=== PATIENT | female | born 1990 | race Caucasian/White ===

== ENCOUNTER 2017-10-02 11:52 | Emergency (ER) | payer OTHER, MEDICAID, SELFPAY ==
[2017-10-02 11:59] VITALS: BP 154/106; PULSE 116; RESP 26; TEMP 37.1; O2SAT 99; BMI 31.0
--- NOTE | 2017-10-02 12:27 | ED.ANXIETY ---
HPI - Anxiety <ZAYRA Camilo - Last Filed: 10/02/17 23:01> General Chief Complaint: Anxiety Stated Complaint: ANXIETY ATTACK Time Seen by Provider: 10/02/17 12:27 History of Present Illness HPI narrative: 27-year-old female with history of type 2 diabetes and also anxiety with panic attacks here for complaint of having a panic attack today. She states that she has had multiple stressors over the last several days and that she has had to travel out of town due to family emergency and has not been able to take her medications. She states that today she started having a panic attack with hyperventilation. She normally takes citalopram however her medication is currently on [place] and she has been and [place] and has not been able to take. She states that she did have some suicidal thoughts a couple of days ago. However she has no plan and she states that she does not want to act on it. She denies any homicidal ideation. She also states she may have urinary tract infection. MD complaint: anxiety Related Data Home Medications Medication Instructions Recorded Confirmed insulin aspart U-100 [Novolog 7 u BIDCC #0 02/22/16 PenFill U-100 Insulin] Previous Rx's Medication Instructions Recorded medroxyprogesterone 10 mg PO SEE INSTRUCTIONS #50 tab 02/22/16 Allergies Allergy/AdvReac Type Severity Reaction Status Date / Time oxycodone [OXYCODONE] Allergy Severe THROAT Unverified 06/17/17 12:15 SWELLS; CAN'T BREATH Review of Systems <ZAYRA Camilo - Last Filed: 10/02/17 23:01> Constitutional Denies chills, Denies fever(s), Denies lethargy and Denies weakness Eyes Denies change in vision, Denies eye discharge, Denies irritation and Denies loss of vision Cardiovascular Denies chest pain, Denies irregular heart rhythm, Denies lightheadedness, Denies palpitations, Denies dyspnea, Denies dyspnea on exertion and Denies orthopnea Respiratory Denies cough, Denies dyspnea, Denies dyspnea on exertion and Denies wheezing Gastrointestinal Gastrointestinal: Denies abdominal pain, Denies change in bowel habits, Denies diarrhea, Denies nausea and Denies vomiting Genitourinary Reports dysuria Musculoskeletal Denies back pain, Denies muscle weakness, Denies numbness and Denies tingling Integumentary/Breasts Denies pruritus, Denies erythema, Denies rash and Denies wounds Neurologic Denies loss of vision, Denies numbness, Denies tingling and Denies weakness Psychiatric Reports anxiety Endocrine Denies palpitations Hematologic/Lymphatic Denies easy bruising Allergic/Immunologic Denies wheezing Exam <ZAYRA Camilo - Last Filed: 10/02/17 23:01> Initial Vital Signs Initial Vital Signs: Vital Signs Temperature 98.7 F 10/02/17 11:59 Pulse Rate 116 H 10/02/17 11:59 Respiratory Rate 26 H 10/02/17 11:59 Blood Pressure 154/106 H 10/02/17 11:59 Pulse Oximetry 99 10/02/17 11:59 Const General: cooperative and well developed Nutritional Appearance: well nourished Orientation: alert, awake, oriented x3 and not confused HENMT Mouth: oral mucosae normal and moist mucous membranes Eyes Conjunctivae: conjunctivae normal Sclera: sclerae normal Pupils: PERRL EOM: EOM intact bilaterally Resp Effort & Inspection: normal respiratory effort, able to speak in complete sentences, no respiratory distress and no use of accessory muscles Auscultation: clear to auscultation bilaterally, no rales, no rhonchi and no wheezes Cardio Rate: regular rate Rhythm: regular rhythm Heart Sounds: no click, no gallops, no murmurs and no rubs Pulses: normal peripheral pulses Skin General: no rashes or lesions noted, No jaundice and No petechiae Neuro General: alert, oriented x3, gait normal and no focal motor deficits Speech: speech normal Psych Appearance: well kempt Mental Status: mental status grossly normal Mood: anxious mood Attitude: cooperative Thought Content: normal and suicidality Judgment: judgment good <Shamar Cotton DO - Last Filed: 10/03/17 07:21> Initial Vital Signs Initial Vital Signs: Vital Signs Temperature 98.7 F 10/02/17 11:59 Pulse Rate 116 H 10/02/17 11:59 Respiratory Rate 26 H 10/02/17 11:59 Blood Pressure 154/106 H 10/02/17 11:59 Pulse Oximetry 99 10/02/17 11:59 Course <ZAYRA Camilo - Last Filed: 10/02/17 23:01> Orders Ordered: Discontinued Medications Sodium Chloride (Normal Saline 0.9%) 1,000 mls @ 1,000 mls/hr IV BOLUS ONE Stop: 10/02/17 13:27 Last Infusion: 10/02/17 13:55 Dose: 0 mls/hr Admin: 10/02/17 12:42 Dose: 1,000 mls/hr Lorazepam (Ativan) 1 mg IV NOW ONE Stop: 10/02/17 12:29 Last Admin: 10/02/17 12:42 Dose: 1 mg Vital Signs - 8 hr 10/02/17 15:27 Pulse Rate 73 Respiratory Rate 16 Blood Pressure 113/72 Pulse Oximetry 100 <Shamar Cotton DO - Last Filed: 10/03/17 07:21> Orders Ordered: Discontinued Medications Sodium Chloride (Normal Saline 0.9%) 1,000 mls @ 1,000 mls/hr IV BOLUS ONE Stop: 10/02/17 13:27 Last Infusion: 10/02/17 13:55 Dose: 0 mls/hr Admin: 10/02/17 12:42 Dose: 1,000 mls/hr Lorazepam (Ativan) 1 mg IV NOW ONE Stop: 10/02/17 12:29 Last Admin: 10/02/17 12:42 Dose: 1 mg Vital Signs - 8 hr 10/02/17 15:27 Pulse Rate 73 Respiratory Rate 16 Blood Pressure 113/72 Pulse Oximetry 100 MDM - Anxiety <ZAYRA Camilo - Last Filed: 10/02/17 23:01> Lab Data Result diagrams: 10/02/17 12:45 10/02/17 12:45 Lab Results 10/02/17 10/02/17 Range/Units 12:45 12:45 WBC 8.0 (4.5-11.0) X10^3/uL RBC 5.42 H (4.0-5.2) X10^6/uL Hgb 15.6 (12.0-16.0) g/dL Hct 45.7 (36-46) % MCV 84.2 (80-100) fL MCH 28.8 (26-34) PG MCHC 34.2 (30-36) % RDW 13.5 (11.6-14.8) % Plt Count 283 (150-400) X10^3/uL Neut % (Auto) 55.9 (50-75) % Lymph % (Auto) 37.7 (25-40) % [place] % (Auto) 5.0 (3-14) % Eos % (Auto) 0.8 L (2-4) % Baso % (Auto) 0.6 (0-2) % Neut # (Auto) 4400 (6847-3542) /uL Sodium 136 L (137-145) mmol/L Potassium 4.1 (3.4-5.1) mmol/L Chloride 103 (98-107) mmol/L Carbon Dioxide 19 L (22-32) mmol/L BUN 16 (7-17) mg/dL Creatinine 0.50 L (0.52-1.04) mg/dL Estimated GFR > 60.0 (>60) mL/min BUN/Creatinine Ratio 32.0 H (6-22) Glucose 367 H (70-100) mg/dL Calcium 9.9 (8.4-10.2) mg/dL Total Bilirubin 0.6 (0.2-1.3) mg/dL AST 21 (14-36) IU/L ALT 32 (9-52) IU/L Alkaline Phosphatase 65 (38-126) U/L Total Protein 7.4 (6.3-8.2) g/dL Albumin 4.7 (3.5-5.0) g/dL Globulin 2.7 (1.7-4.1) g/dL Albumin/Globulin Ratio 1.7 (1.0-2.8) MDM Narrative Medical decision making narrative: Patient was given IV fluid bolus and Ativan and resolved her symptoms. Patient's blood sugar was elevated at 367. After fluids her blood sugar reduced. She states that she is feeling much better. conveyor line bakery worker gave resources for patient for mental health services. She is released home follow up with primary care provider in the next couple days for re-evaluation. Follow up with Mental Health. Return emergency room for any worsening symptoms. Resume Medication regimen as prescribed. <Shamar Cotton, - Last Filed: 10/03/17 07:21> Lab Data Lab Results 10/02/17 10/02/17 Range/Units 12:45 12:45 WBC 8.0 (4.5-11.0) X10^3/uL RBC 5.42 H (4.0-5.2) X10^6/uL Hgb 15.6 (12.0-16.0) g/dL Hct 45.7 (36-46) % MCV 84.2 (80-100) fL MCH 28.8 (26-34) PG MCHC 34.2 (30-36) % RDW 13.5 (11.6-14.8) % Plt Count 283 (150-400) X10^3/uL Neut % (Auto) 55.9 (50-75) % Lymph % (Auto) 37.7 (25-40) % [place] % (Auto) 5.0 (3-14) % Eos % (Auto) 0.8 L (2-4) % Baso % (Auto) 0.6 (0-2) % Neut # (Auto) 4400 (2291-7031) /uL Sodium 136 L (137-145) mmol/L Potassium 4.1 (3.4-5.1) mmol/L Chloride 103 (98-107) mmol/L Carbon Dioxide 19 L (22-32) mmol/L BUN 16 (7-17) mg/dL Creatinine 0.50 L (0.52-1.04) mg/dL Estimated GFR > 60.0 (>60) mL/min BUN/Creatinine Ratio 32.0 H (6-22) Glucose 367 H (70-100) mg/dL Calcium 9.9 (8.4-10.2) mg/dL Total Bilirubin 0.6 (0.2-1.3) mg/dL AST 21 (14-36) IU/L ALT 32 (9-52) IU/L Alkaline Phosphatase 65 (38-126) U/L Total Protein 7.4 (6.3-8.2) g/dL Albumin 4.7 (3.5-5.0) g/dL Globulin 2.7 (1.7-4.1) g/dL Albumin/Globulin Ratio 1.7 (1.0-2.8) Discharge Plan Departure Patient Disposition: Home, Self-Care Clinical Impression: Acute anxiety Discharge Date/Time: 10/02/17 15:28 Interventions: ED Discharge Assessment Last Done: 10/02/17 15:27 Instructions: DI for Anxiety -- Adult Activity Restrictions/Additional Instructions: Your blood sugar was elevated today in the emergency room. However after fluids her blood sugar reduced. Signs and symptoms today presents as anxiety attack. Follow up with her primary care provider in the next couple days for re-evaluation. Mental health resources provided by social work associate today for you to utilize to help with her symptoms. Resume medication regimen as prescribed. Return emergency room for any worsening symptoms. Prescriptions: No Action insulin aspart U-100 [Novolog PenFill U-100 Insulin] 100 UNIT/1 ML cartridge 7 u BIDCC Qty: 0 RF: 0 medroxyprogesterone 10 MG tablet 10 mg PO SEE INSTRUCTIONS Qty: 50 RF: 0 Referrals: Fabiana Dave MD [Primary Care Provider] - <Shamar Cotton DO - Last Filed: 10/03/17 07:21> Cosign ED Attending Lorelei Attestation: I was available for consultation during this patient's emergency department encounter
[2017-10-02] MEDS: SODIUM CHLORIDE 0.9% 1,000 ML 1000 ML IV (12:42)
[2017-10-02] MEDS: LORazepam 2 MG/ML SYRINGE 1 MG IV (12:42)
[2017-10-02 13:00] LABS: Add Manual Diff / Slide Review NO; Basophils Percent Auto 0.6 % (0-2); Eosinophils Percent Auto 0.8 % (2-4); Hematocrit 45.7 % (36-46); Hemoglobin 15.6 g/dL (12.0-16.0); Lymphocytes Percent Auto 37.7 % (25-40); Mean Corpuscular HGB Conc 34.2 % (30-36); Mean Corpuscular Hemoglobin 28.8 PG (26-34); Mean Corpuscular Volume 84.2 fL (80-100); Neutrophils Absolute Auto 4400 /uL (3000-5900); Neutrophils Percent Auto 55.9 % (50-75); Platelet Count 283 X10^3/uL (150-400); Red Blood Cell Count 5.42 X10^6/uL (4.0-5.2); Red Cell Distribution Width 13.5 % (11.6-14.8)
[2017-10-02 13:11] LABS: Alanine Aminotransferase 32 IU/L (9-52); Albumin 4.7 g/dL (3.5-5.0); Albumin Globulin Ratio 1.7 (1.0-2.8); Alkaline Phosphatase 65 U/L (38-126); Aspartate Aminotransferase 21 IU/L (14-36); Bilirubin Total 0.6 mg/dL (0.2-1.3); Blood Urea Nitrogen 16 mg/dL (7-17); Calcium 9.9 mg/dL (8.4-10.2); Carbon Dioxide 19 mmol/L (22-32); Chloride 103 mmol/L (98-107); Estimated Glomerular Filt Rate > 60.0 mL/min (>60); Globulin 2.7 g/dL (1.7-4.1); Glucose 367 mg/dL (70-100); HEMOLYSIS < 15 (0-50); Potassium 4.1 mmol/L (3.4-5.1); Sodium 136 mmol/L (137-145); Total Protein 7.4 g/dL (6.3-8.2)
--- NOTE | 2017-10-02 13:56 | PC.NURSE ---
PT's glucose 269 after liter of fluids. CHIEF SAFETY OFFICER worker to be called at 1400 for eval prior to pt being d/c'd. here with friend who is ride home.
--- NOTE | 2017-10-02 14:31 | PC.NURSE ---
APPLICATIONS SPECIALISTCrista continues to consult with pt. Ready for D/C after.
--- NOTE | 2017-10-02 15:01 | PC.NURSE ---
Bernie GUTIERREZ in ED to provide pt with diabetic support group information as well as some referrals for therapies.
[2017-10-02 15:27] VITALS: BP 113/72; PULSE 73; RESP 16; O2SAT 100
--- NOTE | 2017-10-02 15:32 | CM.SWNOTE ---
ED DEHYDROGENATION SUPERVISOR note: Presenting problem:Pt is a 27 yo female who presented to the ED after experiencing a panic attack while driving. Pt. has not been home in six days, due to an issue with a friend who came into [place]. The basic issue explained was that pt ended up taking friend back to [place] causing her to miss 6 days of Celexa. Pt stated that she was prescribed Celexa after the of her son 7 years ago due to severe post- depression; this has continued to be helpful and pt takes it as prescribed. According to pt's ED provider, pt's glucose was high, but this was trending down. When [facility] met pt., she was tearful but calm. She had been given ativan earlier and stated that she had been trying to be tough and reached the point that she could not longer pretend. Pt reported that everything came crashing in She said that she and her son have been staying on a friend's living room couch for several months. In April, her rent went from $950 to $1300 and she could no longer afford to maintain the apartment. 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 Pt said that the business has been successful in that she has a lot of business, but her employees are not dependable and she has been working 10-14 hour days. Pt's son had been staying with with her father in [place] for a month, but her he called to say that he could no longer keep him and she needed to pick him up. The flight to [place], coupled with the issue with the friend, and not having her medication, appear to be the precipitants to this current situation. Pt also mentioned that prior to coming to the hospital, her father called ehr and ranted at her basically telling her what a terrible mother she is. Given that parenting is very important to pt., this was an extremely upsetting phone call. [facility] did not ask about previous trauma, or gather a lot of history but pt alluded to difficult family circumstances and stated that her father was the last biological family memeber that she trusted. Pt stated that she had been in counseling and found it to be very h elpful, but the therapist no longer accepts her insurance. Given that [facility] is very small, the resources are quite limited. Pt stated that due to conflict of interest, she cannot see her son's therapist, and tried someone else with [facility], but did not feel comfortable with this person, so has been without counseling support. Mental status: Pt is a 27 yo woman who looks her stated age. She was in a hospital gown, looked tired, but was very cooperative. Speech was normal for rate and rhythm. Eye contact was good. Mood was sad, affect appropriate. She was tearful at times as she spoke of desiring to be a good mother and feeling overwhelmed, and tired. No sign of any psychotic thought process. Denied SI/HI. Resources: Given the limited resources on [facility], pt and her friend discussed the idea of pt coming to [place] for therapy and support groups. She was provided with the senior resource book (support groups highlighted) and given the names of some therapists that accept Medicaid in [place]. Pt was also given information about calm breathing and grounding. Discharge plan: Pt's friend has a family fame on [facility] where pt feels comfortable and where she and her son would be welcome to stay until she decides her next steps. It was uncertain at the time of discharge if she was heading to [facility] today or would spend a few days with her friend. They were aware of the importance of getting the medication and both agreed that this was a priority. No further SW needs noted. Discharge Planning/Care Management ED Crisis Response Assessment Start: 10/02/17 15:28 Freq: Status: Active Protocol: Document 10/02/17 15:28 (Rec: 10/02/17 15:32 [id number]) ED Crisis Response Assessment DEHYDROGENATION SUPERVISOR Assessment Type Mental Health Reason for [facility] Referral Panic attack/ Anxiety. Referred by ED staff Presenting Problem Pt was driving, began to have an anxiety attack and presented at the ED. Mental health diagnosis Anxiety, panic attacks. VOA/CMS check No Suicidal thoughts No Current plan for self harm No Thoughts of harm to others No Current thoughts of harming others No Current plan to harm others No Current Risk factors Financial difficulties Relevant Medical History Diabetes Crisis Plan Pt to either go to friend's home in [place]. (Friend is with pt in ED)or to friend's family farm on [facility]. Pt resides on [facility]. Resources Provided Diabetes support info and information on therapists in [place] who accept Medicaid. Action taken Sent home: family/friends ED
== END 2017-10-02 15:28 | disposition home or self-care (01) ==
PROVIDERS: Emergency Provider Nurse Practitioner Family; PCP Family Medicine
DX: F41.9 Anxiety disorder, unspecified (principal)
CPT/HCPCS: 36591; 80053; 81003; 82962; 85025; 96361; 96374; 99283; 99284; J2060

== ENCOUNTER → 2018-04-02 07:25 | Outpatient (CLI) | payer OTHER, MEDICAID, SELFPAY ==
--- NOTE | 2018-04-02 | DI.MRI.S_ITS ---
PROCEDURE: MR HIP RT WO/W CON INDICATIONS: Right hip pain and small right femoral neck lesion seen on outside x-ray. TECHNIQUE: Noncontrast coronal T1 spin echo and STIR through the bony pelvis. Coronal and axial T2 fast spin echo with fat saturation, axial T1 spin echo with fat saturation, sagittal T1 spin echo, and oblique axial T2 fast spin echo with fat saturation through the hip. Post-contrast axial, coronal, and sagittal spin echo with fat saturation through the hip. COMPARISON: Outside Facility, RG, XR PELVIS WITH BILATERAL HIPS, 03/24/2018, 8:15. FINDINGS: Image quality: Excellent. Bones and joints: No suspicious intraosseous mass lesions or abnormal enhancement. Specifically, no discrete right femoral neck mass is identified. Bone marrow of the pelvic ring and proximal femurs demonstrate normal overall signal. No bone contusions or fractures. No avascular necrosis of the femoral heads. The visualized lower lumbar spine appears normally aligned. Tendons and ligaments: The gluteus medius and minimus tendons appear intact, with mild tendinopathy and minimal peritendinous edema distally at their insertions on the greater trochanter. No discrete bursal fluid collection. The adjacent proximal iliotibial band appears intact. The iliopsoas tendon also appears intact, without adjacent bursal fluid collections or evidence for impingement syndrome. The origin of the hamstring tendon is intact at the ischial tuberosity, as well as the associated sacrotuberous ligament. The straight and reflected heads of the rectus femoris muscle origin appear intact, as well as the conjoint tendon. The ligamentum teres appears intact where visualized. Labrum and cartilage: There is mild partial detachment of the superior labrum compatible with mild partial tearing. Cartilage surface of the femoral head appears preserved in thickness. The alpha angle of the femur is within normal limits at less than 55 degrees. Soft tissues: No suspicious soft tissue enhancement. Visualized muscles demonstrate normal bulk and internal signal. Quadratus femoris muscle demonstrates no internal edema to suggest ischiofemoral impingement. The proximal sciatic neurovascular bundle appears normal adjacent to the hamstring tendons. Bladder wall thickness is normal. Genitourinary structures and bowel loops appear normal where visualized. There is a small amount of free fluid in the pelvis which appears within physiologic limits. IMPRESSION: 1. No discrete intraosseous mass lesion or abnormal enhancement to correlate with the finding on prior x-ray. 2. Mild partial tearing of the superior labrum. 3. Mild tendinopathy of the distal gluteal tendons at the greater trochanter with minimal peritendinitis. No discrete bursal fluid collection. Dictated by: Aris Lassiter M.D. on 04/02/2018 at 11:49 Approved by: Aris Lassiter M.D. on 04/02/2018 at 11:57
== END ==
PROVIDERS: PCP Family Medicine; Visit Provider Family Medicine
DX: M25.551 Pain in right hip (principal); S73.191A Other sprain of right hip, initial encounter; M67.951 Unspecified disorder of synovium and tendon, right thigh
CPT/HCPCS: 73723; A9579